=== PATIENT | female | born 1970 | race Caucasian/White ===

== ENCOUNTER 2025-01-23 08:21 | Day surgery (SDC) | payer BC, SELFPAY ==
--- OUTSIDE RECORDS SUMMARY | 2025-01-08 16:21 | XMS_ITS | Clinical Summary ---
Author Organization [address] Address [address] [place] [address] Care Team Providers Care Greaser Operator Name Role Phone Chicho Ortiz DO Primary Care Provider [phone] Allergies No known active allergies Medications omeprazole (PRILOSEC) 20 mg capsule Take 1 capsule (20 mg total) by mouth daily. Active sertraline (ZOLOFT) 100 mg tablet 10/27/2023 Active LORazepam (ATIVAN) 0.5 mg tablet 12/27/2023 Active norethindrone (AYGESTIN) 5 mg tablet Take 1 tablet (5 mg total) by mouth daily. Active albuterol sulfate 90 mcg/actuation HFA aerosol inhalerIndicati ons:Bronchitis Inhale 2 puffs into the lungs every 6 (six) hours as needed for wheezing. 6.7 g 03/01/2024 Active Active Problems Problem Noted Date Diagnosed Date Contact dermatitis, unspecif ied contact dermatitis type, unspecified trigger 01/03/2024 Social History Tobacco Use Types Packs/Day Years Used Date Smoking Tobacco: Never Smokeless Tobacco: Never Tobacco Cessation:Counseling Given: Not Answered Alcohol Use Standard Drinks/Week Comments Yes 2 (1 standard drink = 0.6 oz pur e alcohol) socially Comments Unknown Sex and Gender Information Value Date Recorded Sex Assigned at Not on file Legal Sex Female 10:00 AM EDT Gender Identity Not on file Sexual Orientation Not on file Last Filed Vital Signs Vital Sign Reading Time Taken Comments Blood Pressure 107/66 09/01/2024 1:21 PM EDT Pulse 82 09/01/2024 1:21 PM EDT Temperature 36.6 C (97.9 F) 09/01/2024 1:21 PM EDT Respiratory Rate 16 09/01/2024 1:21 PM EDT Oxygen Saturation 98% 09/01/2024 1:21 PM EDT Inhaled Oxygen Concentration - - Weight 61.2 kg (135 lb) 09/01/2024 1:21 PM EDT Height 170.2 cm (5' 7 ) 09/01/2024 1:21 PM EDT Body Mass Index 21.14 09/01/2024 1:21 PM EDT Plan of Treatment Health Maintenance Due Date Last Done Comments HIV screening 1983 Hepatitis C screening 1988 Tetanus adult (Td q 10,TDAP once) 1990 Cervical cancer screening 1991 Breast cancer screening 2010 Lipid disorder screening 2010 Colon cancer screening, Colonoscopy 2015 Diabetes screening 2015 Pneumococcal Vaccine (50+ ye ars) (1 of 1 - PCV) 2020 Shingles vaccine (Shingrix) (1 of 2 - Shingrix (RZV) 2 Dose Standard Series) 2020 Covid-19 vaccine series (1 - 2023- season) 2024 Influenza vaccine 01/07/2025 RSV Immunization (1 - 1-dose 75+ series) 2045 Meningococcal B Vaccine Aged Out No l onger eligible based on patient's age to complete this topic Meningococcal Vaccine Aged Out No anand jelly eligible based on patient's age to complete this topic Insurance BCBS [facility] BS Care Teams Greaser Operator Relationship Specialty Start Date End Date Chicho Ortiz DO [address] [place] [id number] PCP - General Internal Medicine 01/03/24
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
--- OUTSIDE RECORDS SUMMARY | 2025-01-08 16:21 | XMS_ITS | Clinical Summary ---
Author Organization [facility] Address [address] [place] [address] Care Team Providers Care Physician Gynecologist Name Role Phone Camron Reina MD Primary Care Provider [phone] Allergies No known active allergies Medications Medication Sig Dispensed Refills Start Date End Date Status oxyCODONE (ROXICODONE) 5 MG immediate release tablet Take 1 tablet (5 mg total) by mouth every 4 (four) hours as needed for pain. 15 tablet 0 03/05/2016 Active ondansetron (ZOFRAN-ODT) 4 MG disintegrating tablet Take 1 tablet (4 mg total) by mouth every 6 (six) hours as needed for nausea. 12 tablet 0 03/05/2016 Active omeprazole (PRILOSEC) 20 MG capsule Take 20 mg by mouth daily. 0 Active simethicone (MYLICON) 80 MG chewable tablet Chew 1 tablet (80 mg total) by mouth 4 (four) times a day as needed for flatulence. 30 tablet 0 03/08/2016 Active Active Problems Problem Noted Date Diagnosed Date Diarrhea 03/07/2016 Hematochezia 03/07/2016 Abdominal pain 03/07/2016 Acute colitis 03/07/2016 Social History Tobacco Use Types Packs/Day Years Used Date Smoking Tobacco: Never Alcohol Use Standard Drinks/Week Comments No 0 (1 standard drink = 0.6 oz pur e alcohol) Sex and Gender Information Value Date Recorded Sex Assigned at Not on file Gender Identity Not on file Sexual Orientation Not on file Last Filed Vital Signs Vital Sign Reading Time Taken Comments Blood Pressure 116/64 03/08/2016 7:00 AM EDT Pulse 20 03/08/2016 7:00 AM EDT Temperature 36.4 C (97.6 F) 03/08/2016 7:00 AM EDT Respiratory Rate 20 03/08/2016 7:00 AM EDT Oxygen Saturation 96% 03/08/2016 7:00 AM EDT Inhaled Oxygen Concentration - - Weight 68.9 kg (152 lb) 03/08/2016 12:30 AM EDT Height 172.7 cm (5' 8 ) 03/06/2016 12:07 AM EDT Body Mass Index 23.11 03/06/2016 12:07 AM EDT Plan of Treatment Health Maintenance Due Date Last Done Comments Hepatitis B Vaccines (1 of 3 - 3-dose series) 1970 Hepatitis C Screening 1970 COVID-19 Vaccine (#1) 1970 Depression Screening 1982 Preventative Health Evaluation 1988 DTap / Tdap / Td (1 - Tdap) 1989 Cervical Cancer Screening (P ap Smear) 1991 Colon Cancer Screening (Colonoscopy) 2015 Breast Cancer Screening (Mammogram) 2020 Shingrix-Zoster Vaccine (1 of 2) 2020 Influenza Vaccine (#1) 2025 Pneumococcal Vaccine Aged Out No long er eligible based on patient's age to complete this topic RSV Ped < 20 months Aged Out No longe r eligible based on patient's age to complete this topic Advance Directives For more information, please contact: [phone] Latest Code Status on File Code Status Date Activated Date Inactivated Comments Full Code 03/06/2016 12:01 AM 03/08/2016 6:49 PM Th is code status was ascertained in the following way: Discuss with patient Care Teams Physician Gynecologist Relationship Specialty Start Date End Date Camron Reina MD [address] [place] [id number] PCP - General Internal Medicine 03/05/16
[2025-01-17 12:58] VITALS: BMI 21.0
[2025-01-23] VITALS (15 sets, daily range): BP systolic 113–145; BP diastolic 52–96; PULSE 63–105; RESP 7–16; TEMP 36.3–36.8; O2SAT 97–99; BMI 21.2
[2025-01-23] MEDS: Lactated Ringers 1,000 ML 100 ML IVCONT (10:15)
--- NOTE | 2025-01-23 11:20 | P.CONAN_ITS ---
Documented by User: Elsa Yeboah NP 01/21/25 15:02 HPI - Anesthesia Eval Consult details Narrative: 54yo F for Right ?Medial Rectus Eye Muscle Recession [facility] Past Medical History Medical History (Updated 01/17/25 @ 12:55 by Jacquelin Gil RN) Hx of fracture of clavicle Colitis IBS (irritable bowel syndrome) Glaucoma Anxiety Surgical History Surgical History (Updated 01/17/25 @ 12:55 by Jacquelin Gil RN) Hx of wisdom tooth extraction History of bunionectomy of left great toe Hx of appendectomy Social History Social History (Updated 01/17/25 @ 12:59 by Jacquelin Gil RN) Household Members: Family Housing: House Patient Tobacco Use Status: Never used Tobacco Use of substances other than those prescribed or required for medical reasons: No Advance Directives: No Advance Directives Information Provided: Yes Advance Directives on File: No Healthcare Proxy: No Meds Allergies Allergy/AdvReac Type Severity Reaction Status Date / Time No Known Allergies Allergy Verified 01/17/25 12:56 Home Medications ?Medication ?Instructions ?Recorded ?Confirmed ?Last Taken ?Type estradiol 0.5 mg-progesterone 100 1 cap PO QPM 5 01/17/25 Unknown History mg capsule lorazepam 0.5 mg tablet 0.5 mg PO BEDTIME PRN Anxiet y 01/17/25 01/17/25 Unknown History sertraline 50 mg tablet 50 mg PO DAILY 01/17/2501/07 Unknown History Exam Height,Weight and Vital Signs: Height 5 ft 8 in Weight 62.596 kg Assessment and Plan Assessment Anesthesia Assessment: Chart Reviewed Documented by User: Wen Tobin DO 01/23/25 11:57 [facility] Past Medical History Medical History (Updated 01/17/25 @ 12:55 by Jacquelin Gil RN) Hx of fracture of clavicle Colitis IBS (irritable bowel syndrome) Glaucoma Anxiety Family History Family history of problems with anesthesia: No Surgical History Surgical History (Updated 01/17/25 @ 12:55 by Jacquelin Gil RN) Hx of wisdom tooth extraction History of bunionectomy of left great toe Hx of appendectomy History of Problems with Anesthesia: No Social History Social History (Updated 01/17/25 @ 12:59 by Jacquelin Gil RN) Household Members: Family Housing: House Patient Tobacco Use Status: Never used Tobacco Use of substances other than those prescribed or required for medical reasons: No Advance Directives: No Advance Directives Information Provided: Yes Advance Directives on File: No Healthcare Proxy: No Meds Allergies Allergy/AdvReac Type Severity Reaction Status Date / Time No Known Allergies Allergy Verified 01/17/25 12:56 Home Medications ?Medication ?Instructions ?Recorded ?Confirmed ?Last Taken ?Type estradiol 0.5 mg-progesterone 100 1 cap PO QPM 5 01/17/25 Unknown History mg capsule lorazepam 0.5 mg tablet 0.5 mg PO BEDTIME PRN Anxiet y 01/17/25 01/17/25 Unknown History sertraline 50 mg tablet 50 mg PO DAILY 01/17/2501/07 Unknown History Exam Exam Date and Time: 01/23/25 1120 Height,Weight and Vital Signs: Height 5 ft 8 in Weight 62.596 kg Vital Signs Temperature 98.2 F 01/23/25 10:14 Pulse Rate 79 01/23/25 10:14 Respiratory Rate 16 01/23/25 10:14 Blood Pressure 132/68 01/23/25 10:14 Pulse Oximetry 98 01/23/25 10:14 Oxygen Delivery Method Room Air 01/23/25 10:14 Temperature 98.2 F 01/23/25 10:14 Pulse Rate 79 01/23/25 10:14 Respiratory Rate 16 01/23/25 10:14 Blood Pressure 132/68 01/23/25 10:14 Pulse Oximetry 98 01/23/25 10:14 Oxygen Delivery Method Room Air 01/23/25 10:14 Airway Mallampati Class: IV (small mouth aperture) TM Dist: <=3cm Neck ROM: Full Loose/Missing/Broken Teeth: Yes (loose molar right upper jaw) Heart: S1S2 Lungs: CTAB Assessment and Plan Assessment Anesthesia Assessment: Anesthesia Plan Discussed and Chart Reviewed Final Anesthetic Review Family History of Problems with Anesthesia: No History of Problems with Anesthesia: No NPO: Yes ASA Class: II Final Preanesthetic Review: No Changes in Pt Med Stat, Meds/Allgs Chart Reviewed, Consent Obtained/Reviewed and Anes Risks/Benef Reviewed Patient Risk: Low Procedure Risk: Low Anesthetic Plan Anesthetic Plan: GA and Agree w/ Assess. and Plan Disposition: Standard PACU
--- NOTE | 2025-01-23 12:43 | P.OPHTHAL_ITS ---
Ophthalmology Operative Note Date of Service: 01/23/25 Narrative: Diagnosis esotropia. Postoperative diagnosis same. Procedure recession of right medial rectus [address] Maurer. Anesthesia general. Complications complications none. The patient was brought to the operative room placed under general anesthesia. The right eye was prepped and draped in the usual sterile ophthalmic fashion. A peritomy was created around the medial rectus muscle. The medial rectus was then hooked and secured with a double- armed Vicryl suture. It was disinserted from the globe and reattached to a position 3 mm behind the original insertion. Conjunctiva was closed with interrupted Vicryl sutures. The patient was then awoken from general anesthesia and discharged to postoperative recovery in good condition.
[2025-01-23] MEDS: oxyCODONE HCl Immed Release 5 MG TABLET PO (13:59)
== END 2025-01-23 15:21 | disposition home or self-care (01) ==
PROVIDERS: PCP Internal Medicine; Visit Provider Ophthalmology
PROC: (CPT 67311; principal; 2025-01-23 11:50)
DX: H53.2 Diplopia (principal); H40.9 Unspecified glaucoma; K52.9 Noninfective gastroenteritis and colitis, unspecified; F41.9 Anxiety disorder, unspecified; Z79.899 Other long term (current) drug therapy
CPT/HCPCS: 67311; J1100; J1596; J1885; J2003; J2250; J2405; J2704; J3010